=== PATIENT | female | born 1960 | race Caucasian/White ===

== ENCOUNTER 2017-03-15 04:26 | Day surgery (SDC) | payer BC ==
[2017-03-09 17:37] LABS: HEMATOCRIT 38.5 % (36.0-48.0); HEMOGLOBIN 12.7 g/dL (12.0-16.0)
[2017-03-09 17:49] LABS: BUN (BLOOD UREA NITROGEN) 13 MG/DL (6-23); CALCIUM, SERUM 9.1 MG/DL (8.5-10.4); CHLORIDE, SERUM 109 MMOL/L (96-112); CO2 (CARBON DIOXIDE) 30 MMOL/L (24-34); CREATININE 0.53 MG/DL (0.55-1.02); GFR AFRICAN AMERICAN 124 ML/MIN (>=60); GFR NON AFRICAN AMERICAN 107 ML/MIN (>=60); GLUCOSE, SERUM 88 MG/DL (60-99); POTASSIUM, SERUM 3.5 MMOL/L (3.5-5.3); SODIUM, SERUM 144 MMOL/L (135-148)
--- NOTE | ~2017-03-15 | OP ---
Record Of Operation [facility] [address] [place]. [address] NAME: ASHLEY LESLIE : 62 STATUS : [facility]#: [id number] AGE: 56 ADM/REG DATE : 03/15/17 MR#: [id number] REPORT SERV DATE: 03/16/17 DICTATED BY: TREVON EUCEDA II DATE: 03/15/17 REPORT STATUS : Draft TRANSCRIBED BY: MODAle DATE: 03/15/17 DATE OF PROCEDURE: 03/15/2017 PREOPERATIVE DIAGNOSES: 1. Lumbar spinal stenosis, L4-5 with mild spondylolisthesis without instability. 2. Right L5-S1 lateral recess stenosis. POSTOPERATIVE DIAGNOSES: 1. Lumbar spinal stenosis, L4-5 with mild spondylolisthesis without instability. 2. Right L5-S1 lateral recess stenosis. PROCEDURES: 1. Laminectomy L4-L5. 2. Right L5-S1 laminotomy. 3. Use of the microscope and stereotactic spinal imaging. SURGEON: Trevon Euceda M.D. FLUIDS: 1300 mL LR. ESTIMATED BLOOD LOSS: 25 mL. DRAINS: None. COMPLICATIONS: None. ANTIBIOTIC: Preoperatively. PREOPERATIVE HISTORY: This is a very friendly, 56-year-old female, who reports minimal back pain, but predominantly pain radiating from the buttock into the thigh. She reports primarily pain into the lateral aspect of the leg, but occasionally into the calf. We discussed the pros and cons of laminectomy at L4-5. I advised her that she does have fairly severe facet changes, but there was no obvious instability. I discussed with her and her family that I suspect she will develop more instability at this level with more additional time and degeneration. I discussed with them the indications for fusion which again at this point, I advised that a laminectomy was more indicated at this point than a fusion. I also reviewed the MRI again early this morning and felt that L5-S1 also should be addressed based upon the lateral recess stenosis and a small annular protrusion. PROCEDURE IN DETAIL: After informed consent was obtained, the patient was brought to the operating room at her request and general anesthesia achieved. She was placed in prone position. The back was prepped and draped in a sterile fashion. The stereotactic spinal pin was placed into the left iliac crest and the intraoperative CT scan completed. Next, the minimally invasive incision was performed and stereotactic guidance used as well as used throughout the case. The quadrant retractor was placed at L4-5. The microscope was brought into place and the spinolaminar junction taken down. The unilateral approach was now Record Of Operation [facility] [id number] [place]. [address] NAME: ASHLEY LESILE : 62 STATUS : [facility] PAT#: [id number] AGE: 56 ADM/REG DATE : 03/15/17 MR#: [id number] REPORT SERV DATE: 03/16/17 DICTATED BY: TREVON EUCEDA II DATE: 03/15/17 REPORT STATUS : Draft TRANSCRIBED BY: JUAN JOSE DATE: 03/15/17 carried out for bilateral decompression. The hypertrophic ligamentum flavum was removed and the dura well decompressed. The portions of the facets were now removed and the L5 nerve roots well decompressed in the lateral recesses. The L4 nerve root did not exhibit severe compression in the foramen. At this point, I was pleased with the decompression at this level. Hemostasis was achieved. We then worked down to the L5-S1 level where upon the laminotomy was performed and the medial 1/3rd of the joint removed. This allowed now acceptable and an adequate decompression of the S1 nerve root. The annular protrusion did not appear to need an actual diskectomy. At this point, the area was now irrigated and hemostasis achieved, and the patient was then extubated and transferred to PACU in stable condition. RODY/JUAN JOSE Trevon Euceda II, M.D. / [id number] CC: Tu Garcia II, II, M.D.
[~2017-03-15 04:26] MED LIST: AMIT25 PO; BREO ELLIPTA 21 EACH INH; CALTRA600D PO; COZ50 PO; DITRO5 PO; FISH OIL1200 MG PO; FLONASE NAS; LEVOTHYROXIN112 MCG PO; MAGNESIUM PO; MOTRIN IB200 MG PO; MUCINEX600 MG PO; NORV5 PO; PCET PO; PRILO PO; PROAIR HFA INH; SINGULAIR1 PO; SYN125 PO
== END 2017-03-15 11:28 | disposition home or self-care (01) ==
LOC: SDC 04:26
PROVIDERS: Orthopaedic Surgery
PROC: 01NB0ZZ Release Lumbar Nerve, Open Approach (ICD-10-PCS; 2017-03-15)
PROC: 01NB0ZZ Release Lumbar Nerve, Open Approach (ICD-10-PCS; principal; 2017-03-15 05:45)
DX: M48.07 Spinal stenosis, lumbosacral region (principal); M43.16 Spondylolisthesis, lumbar region; M54.10 Radiculopathy, site unspecified; M19.90 Unspecified osteoarthritis, unspecified site; I10 Essential (primary) hypertension; I47.1 Supraventricular tachycardia; N20.0 Calculus of kidney; J45.909 Unspecified asthma, uncomplicated; G47.33 Obstructive sleep apnea (adult) (pediatric); K21.9 Gastro-esophageal reflux disease without esophagitis; K64.9 Unspecified hemorrhoids; D64.9 Anemia, unspecified; F32.9 Major depressive disorder, single episode, unspecified; F41.9 Anxiety disorder, unspecified; F17.210 Nicotine dependence, cigarettes, uncomplicated; E89.0 Postprocedural hypothyroidism; E16.2 Hypoglycemia, unspecified; E78.5 Hyperlipidemia, unspecified; E78.00 Pure hypercholesterolemia, unspecified; E66.9 Obesity, unspecified; Z68.38 Body mass index [BMI] 38.0-38.9, adult; Z84.1 Family history of disorders of kidney and ureter; Z87.81 Personal history of (healed) traumatic fracture; Z86.010 Personal history of colon polyps; Z90.89 Acquired absence of other organs; Z98.51 Tubal ligation status; Z80.9 Family history of malignant neoplasm, unspecified; Z83.3 Family history of diabetes mellitus; Z83.6 Family history of other diseases of the respiratory system; Z82.3 Family history of stroke; Z99.89 Dependence on other enabling machines and devices; Z88.4 Allergy status to anesthetic agent; Z88.5 Allergy status to narcotic agent; Z91.040 Latex allergy status; Z79.51 Long term (current) use of inhaled steroids; Z79.899 Other long term (current) drug therapy; Z97.2 Presence of dental prosthetic device (complete) (partial); Z90.49 Acquired absence of other specified parts of digestive tract; Z90.710 Acquired absence of both cervix and uterus
CPT/HCPCS: 80048; 85014; 85018; 88304; 88311; 93005; A9270-GY; J0690; J1030; J1170; J2250; J2405; J2710; J3010